=== PATIENT | male | born 1965 | race Caucasian/White ===

== ENCOUNTER 2018-03-02 23:02 | Emergency (ER) | payer OTHER ==
[~2018-03-02] VITALS: Ht 188 cm; Wt 100.7 kg
[~2018-03-02 23:02] MED LIST: OXYC10TA6 PO; OXYM20TA13 PO
[2018-03-02 23:03] VITALS: BP 150/95
[2018-03-02] MEDS ORDERED: BUPIVACAINE 0.25% ONE (23:36)
[2018-03-03] MEDS ORDERED: BUPIVACAINE/PF-EPI 0.25% 1:200K SQ ONE
== END 2018-03-03 00:34 | disposition home or self-care (01) ==
LOC: ED 23:59
DX: M54.16 Radiculopathy, lumbar region (principal); M43.17 Spondylolisthesis, lumbosacral region; M54.42 Lumbago with sciatica, left side
CPT/HCPCS: 72110; 99283; J7512

== ENCOUNTER → 2019-01-28 | Outpatient (CLI) | payer OTHER ==
[2019-01-28 09:26] LABS: BASOPHILS # (AUTO) 0.03 x10^3/uL (0-0.1); BASOPHILS % (AUTO) 0 % (0-1); EOSINOPHILS # (AUTO) 0.16 x10^3/uL (0-0.4); EOSINOPHILS % (AUTO) 2 % (1-7); LYMPHOCYTES # (AUTO) 1.91 x10^3/uL (1-3.4); LYMPHOCYTES % (AUTO) 27 % (22-44); MD NO; MEAN CORPUSCULAR HEMOGLOBIN 31.9 pg (27.5-34.5); MEAN CORPUSCULAR HGB CONC 33.5 g/dL (33.2-36.2); MEAN CORPUSCULAR VOLUME 95.1 fL (81-97); MEAN PLATELET VOLUME 8.1 fL (7.4-10.4); MONOCYTES # (AUTO) 0.55 x10^3/uL (0.2-0.8); MONOCYTES % (AUTO) 8 % (2-9); NEUTROPHILS # (AUTO) 4.42 x10^3/uL (1.8-6.8); NEUTROPHILS % (AUTO) 63 % (42-75); PLATELET COUNT 304 x10^3/uL (130-400); RED BLOOD COUNT 4.35 x10^6/uL (4.38-5.82)
[2019-01-28 09:34] LABS: INTERNATIONAL NORMALIZED RATIO 0.97 (0.93-1.1); PROTHROMBIN TIME 10.2 Seconds (9.6-11.5)
[2019-01-28 09:35] LABS: ANION GAP 4 mmol/L (5-15); CALCIUM 9.1 mg/dL (8.5-10.1); CHLORIDE 104 mmol/L (98-107); CREATININE 0.83 mg/dL (0.7-1.3)
== END | disposition home or self-care (01) ==
LOC: RAD 09:09
PROVIDERS: ATTEND Neurological Surgery
DX: Z01.812 Encounter for preprocedural laboratory examination (principal); R07.9 Chest pain, unspecified; M50.00 Cervical disc disorder with myelopathy, unspecified cervical region; M48.02 Spinal stenosis, cervical region
CPT/HCPCS: 36415; 71046; 80048; 85025; 85610; 85730; 93005

== ENCOUNTER 2019-03-18 06:15 | Emergency (ER) | payer OTHER ==
[~2019-03-18] VITALS: Ht 182.9 cm; Wt 97.2 kg
[2019-03-18] MEDS ORDERED: ALBUTEROL/IPRATROPIUM 2.5MG/0.5MG, 3 ML NPPB ONE (06:30)
--- NOTE | 2019-03-18 06:45 | NUR ---
PT HERE FOR INCREASED SOBX SEVERAL DAYS. PT 92 ON RA. PT PLACED ON 2 L O2 AND SATS IMPROVED TO 97. PT MEDICATED. RT CALLED. PT DENIES HX OF ASTHMA. CALL LIGHT IN REACH
[2019-03-18] MEDS ORDERED: ALBUTEROL/IPRATROPIUM 2.5MG/0.5MG, 3 ML ONE (06:53)
[2019-03-18 07:51] VITALS: BP 120/79
--- NOTE | 2019-03-18 07:51 | NUR ---
Plan of care updated with patient, patient to be discharged. Dressing independently.
== END 2019-03-18 08:05 | disposition home or self-care (01) ==
LOC: ED 08:02
DX: J45.909 Unspecified asthma, uncomplicated (principal)
CPT/HCPCS: 93005; 94640; 99283; J7512

== ENCOUNTER 2019-04-13 14:18 | Outpatient (CLI) | payer OTHER | END 2019-04-13 23:59 | disposition home or self-care (01) | LOC: STAR 14:18 | PROVIDERS: ATTEND Neurological Surgery | DX: Z01.818 Encounter for other preprocedural examination (principal); M48.02 Spinal stenosis, cervical region | CPT/HCPCS: 36415; 80053; 85025; 85610; 85730; 93005 ==

== ENCOUNTER 2019-04-21 07:11 | Inpatient (IN) | payer OTHER ==
[~2019-04-21] VITALS: Ht 185.4 cm; Wt 91.4 kg
[~2019-04-21 07:11] MED LIST changes: +BACITRACIN 50,000 UNIT ONE; +BUPIVACAINE/PF-EPI 0.5% 1:200K ONE; +THROMBIN 5,000 UNIT VIAL TP ONE
[2019-04-21] MEDS ORDERED: LACTATED RINGERS 1,000 ML IV SCH (07:51)
[2019-04-21] MEDS ORDERED: AMLO5TAB4 PO (07:55)
[2019-04-21 07:57] VITALS: BP 130/85
[2019-04-21] MEDS ORDERED: GABAPENTIN 300 MG CAPSULE PO ONE (08:00)
[2019-04-21] MEDS ORDERED: ACETAMINOPHEN 500 MG TABLET PO ONE (08:00)
[2019-04-21] MEDS ORDERED: MIDAZOLAM 1 MG/ML, 2ML ONE (08:18)
[2019-04-21] MEDS ORDERED: FENTANYL PF 250 MCG/5ML ONE ×5 (08:19→11:12)
[2019-04-21] MEDS ORDERED: NEOSTIGMINE 1 MG/ML, 10ML ONE (08:22)
[2019-04-21] MEDS ORDERED: DEXAMETHASONE 4 MG/ML, 1ML ONE (08:22)
[2019-04-21] MEDS ORDERED: PROPOFOL 10 MG/ML, 20ML ONE (08:22)
[2019-04-21] MEDS ORDERED: GLYCOPYRROLATE 0.2MG/1ML, 5ML ONE (08:22)
[2019-04-21] MEDS ORDERED: CEFAZOLIN 1,000 MG ONE ×3 (08:22→13:12)
[2019-04-21] MEDS ORDERED: ROCURONIUM 10MG/ML,5ML ONE (08:22)
[2019-04-21] MEDS ORDERED: PROPOFOL 50 ML ONE ×4 (09:38→13:14)
[2019-04-21] MEDS ORDERED: MEPERIDINE/PF 25MG/0.5ML IVPush PRN (10:30)
[2019-04-21] MEDS ORDERED: PROMETHAZINE 25 MG/ML, 1ML IM PRN ×3 (10:30→18:00)
[2019-04-21] MEDS ORDERED: LORazepam 2 MG/ML, 1ML IVPush PRN (10:30)
[2019-04-21] MEDS ORDERED: PROMETHAZINE 12.5 MG SUPP PR PRN (10:30)
[2019-04-21] MEDS ORDERED: hydrALAzine 20 MG/ML, 1ML IV PRN (10:30)
[2019-04-21] MEDS ORDERED: PROMETHAZINE 25 MG SUPP PR PRN (10:30)
[2019-04-21] MEDS ORDERED: OXYcodone 5 MG/5 ML ORAL.SOL UDC PO PRN (10:30)
[2019-04-21] MEDS ORDERED: MORPHINE SULFATE 4 MG/ML, 1ML IVPush PRN (10:30)
[2019-04-21] MEDS ORDERED: ONDANSETRON 2MG/ML, 2ML IV PRN ×2 (10:30→18:00)
[2019-04-21] MEDS ORDERED: FENTANYL PF 100 MCG/2ML IV PRN (10:30)
[2019-04-21] MEDS ORDERED: LABETALOL 5MG/ML, 20ML IV PRN (10:30)
[2019-04-21] MEDS ORDERED: PROMETHAZINE 25 MG/ML, 1ML IV PRN (10:30)
[2019-04-21] MEDS ORDERED: ONDANSETRON ODT 8 MG PO PRN (10:30)
[2019-04-21] MEDS ORDERED: PHENYLEPHRINE 10 MG/ML ONE (10:35)
[2019-04-21] MEDS ORDERED: SUCCINYLCHOLINE 20 MG/ML, 10ML ONE (11:17)
[2019-04-21] MEDS ORDERED: FENTANYL PF 100 MCG/2ML ONE ×7 (12:07→14:06)
[2019-04-21] MEDS ORDERED: LORazepam 2 MG/ML, 1ML ONE (14:35)
[2019-04-21] MEDS ORDERED: HYDROmorphone 2 MG/ML, 1ML ONE (14:35)
[2019-04-21] MEDS: HYDROmorphone 2 MG/ML, 1ML IVPush PRN ×3 (14:59→16:00)
[2019-04-21] MEDS ORDERED: OXYcodone ORAL.CONC 20 MG/ML PO PRN (15:00)
[2019-04-21] MEDS ORDERED: OXYcodone 5 MG/5 ML ORAL.SOL UDC ONE (15:39)
[2019-04-21] MEDS ORDERED: METHOCARBAMOL 1000MG/10 ML IVPB STA (16:01)
[2019-04-21] MEDS ORDERED: METHOCARBAMOL 1,000 MG in DEXTROSE 5% 100 ML IV ONE ×2 (16:30→18:00)
[2019-04-21 17:28] VITALS: BP 144/91
[2019-04-21] MEDS ORDERED: METHOCARBAMOL 750 MG TABLET PO PRN (18:00)
[2019-04-21] MEDS ORDERED: BISACODYL 10 MG SUPP PR PRN (18:00)
[2019-04-21] MEDS ORDERED: DIAZEPAM 5 MG/ML, 2ML IV PRN (18:00)
[2019-04-21] MEDS ORDERED: HYDROcodone/APAP 5/325 TABLET PO PRN (18:00)
[2019-04-21] MEDS ORDERED: DIPHENHYDRAMINE 50 MG/ML, 1ML IVPush PRN (18:00)
[2019-04-21] MEDS ORDERED: MAGNESIUM HYDROXIDE 8%, 30ML UDC PO PRN (18:00)
[2019-04-21] MEDS ORDERED: OXYcodone IR 5MG TABLET PO PRN (18:00)
[2019-04-21] MEDS: DIAZEPAM 5 MG TABLET PO PRN (19:58)
[2019-04-21] MEDS: CEFAZOLIN PMX 1GM/50ML 50 ML IVPB SCH (20:00)
[2019-04-21] MEDS: NS + 20MEQ KCL 1,000 ML IV SCH (20:00)
[2019-04-21 20:22] VITALS: BP 140/88
[2019-04-22] VITALS (7 sets, daily range): BP systolic 148–184; BP diastolic 93–104
[2019-04-22] MEDS: METHOCARBAMOL 750 MG in DEXTROSE 5% 100 ML IV SCH ×3 (01:00→17:35)
[2019-04-22] MEDS: DIAZEPAM 5 MG TABLET PO PRN ×4 (02:06→21:48)
[2019-04-22] MEDS: CEFAZOLIN PMX 1GM/50ML 50 ML IVPB SCH (03:40)
[2019-04-22] MEDS: OXYcodone IR 5MG TABLET PO PRN ×4 (06:09→21:53)
[2019-04-22 06:10] LABS: BASOPHILS # (AUTO) 0.03 x10^3/uL (0-0.1); BASOPHILS % (AUTO) 0 % (0-1); EOSINOPHILS # (AUTO) 0.02 x10^3/uL (0-0.4); EOSINOPHILS % (AUTO) 0 % (1-7); LYMPHOCYTES # (AUTO) 1.31 x10^3/uL (1-3.4); LYMPHOCYTES % (AUTO) 10 % (22-44); MD NO; MEAN CORPUSCULAR HEMOGLOBIN 31.7 pg (27.5-34.5); MEAN CORPUSCULAR HGB CONC 32.5 g/dL (33.2-36.2); MEAN CORPUSCULAR VOLUME 97.5 fL (81-97); MEAN PLATELET VOLUME 9.6 fL (7.4-10.4); MONOCYTES # (AUTO) 0.75 x10^3/uL (0.2-0.8); MONOCYTES % (AUTO) 6 % (2-9); NEUTROPHILS # (AUTO) 11.55 x10^3/uL (1.8-6.8); NEUTROPHILS % (AUTO) 85 % (42-75); PLATELET COUNT 275 x10^3/uL (130-400); RED BLOOD COUNT 4.41 x10^6/uL (4.38-5.82); RED CELL DISTRIBUTION WIDTH 13.8 % (9.4-14.8)
[2019-04-22 06:15] LABS: ANION GAP 6 mmol/L (5-15); CALCIUM 8.7 mg/dL (8.5-10.1); CHLORIDE 108 mmol/L (98-107); CREATININE 0.87 mg/dL (0.7-1.3)
[2019-04-22] MEDS: SENNA/DOCUSATE TABLET PO SCH (08:01)
[2019-04-22] MEDS: AMLODIPINE 5 MG TABLET PO SCH (08:01)
[2019-04-22] MEDS: NS + 20MEQ KCL 1,000 ML IV SCH ×2 (10:20→23:40)
[2019-04-22] MEDS ORDERED: OXYcodone IR 5MG TABLET ONE ×2 (10:31→17:28)
[2019-04-22] MEDS: HYDROmorphone 2 MG/ML, 1ML IM PRN ×3 (12:54→23:43)
[2019-04-22] MEDS ORDERED: OXYcodone 5 MG/5 ML ORAL.SOL UDC ONE (21:44)
[2019-04-23 01:45] VITALS: BP 161/115
[2019-04-23] MEDS: METHOCARBAMOL 750 MG in DEXTROSE 5% 100 ML IV SCH ×3 (01:53→18:31)
[2019-04-23] MEDS: OXYcodone IR 5MG TABLET PO PRN ×4 (01:53→19:48)
[2019-04-23] MEDS: LABETALOL 5MG/ML, 20ML IV PRN ×3 (03:43→14:08)
[2019-04-23] MEDS: HYDROmorphone 2 MG/ML, 1ML IM PRN ×3 (03:48→15:10)
[2019-04-23 03:54] VITALS: BP 159/104
[2019-04-23 04:00] VITALS: BP 151/97
[2019-04-23] MEDS: DIAZEPAM 5 MG TABLET PO PRN ×2 (04:18→12:56)
[2019-04-23 07:53] VITALS: BP 162/107
[2019-04-23] MEDS: AMLODIPINE 5 MG TABLET PO SCH (09:16)
[2019-04-23] MEDS: PREGABALIN 25 MG CAPSULE PO SCH ×2 (09:16→21:35)
[2019-04-23] MEDS: SENNA/DOCUSATE TABLET PO SCH (09:16)
[2019-04-23] MEDS: NS + 20MEQ KCL 1,000 ML IV SCH (09:51)
[2019-04-23 14:02] VITALS: BP 166/106
[2019-04-23 19:32] VITALS: BP 156/103
[2019-04-23] MEDS ORDERED: AMITRIPTYLINE 25 MG TABLET PO SCH (21:00)
[2019-04-24] MEDS: OXYcodone IR 5MG TABLET PO PRN ×3 (00:42→10:09)
[2019-04-24 00:45] VITALS: BP 181/116
[2019-04-24] MEDS: LABETALOL 5MG/ML, 20ML IV PRN ×2 (01:01→07:03)
[2019-04-24] MEDS: NS + 20MEQ KCL 1,000 ML IV SCH (02:10)
[2019-04-24] MEDS: METHOCARBAMOL 750 MG TABLET PO SCH ×2 (02:11→10:36)
[2019-04-24] MEDS: HYDROmorphone 2 MG/ML, 1ML IM PRN (05:56)
[2019-04-24 07:00] VITALS: BP 168/110
[2019-04-24] MEDS: SENNA/DOCUSATE TABLET PO SCH (08:29)
[2019-04-24] MEDS: PREGABALIN 25 MG CAPSULE PO SCH (08:29)
[2019-04-24] MEDS: AMLODIPINE 5 MG TABLET PO SCH (08:30)
[2019-04-24] MEDS ORDERED: MORP30TA81 PO (09:56)
[2019-04-24] MEDS ORDERED: OXYC5TAB2 PO (09:56)
[2019-04-24] MEDS ORDERED: AMIT25TA PO (09:56)
[2019-04-24] MEDS ORDERED: PREG25CA PO (09:56)
[2019-04-24] MEDS ORDERED: METH750T87 PO (09:56)
[2019-04-24] MEDS ORDERED: DIAZ5TAB PO ×2 (09:56→10:25)
[2019-04-24 11:14] VITALS: BP_SYST 150; BP_SYST 156; BP_DIAS 108; BP_DIAS 122
== END 2019-04-24 11:52 | disposition home or self-care (01) | DRG 473 ==
LOC: ORIP 07:11 → 4NOR 17:13 → DCLOUNGE 04-24 11:15
PROVIDERS: ADMIT Neurological Surgery; ATTEND Neurological Surgery
PROC: 0RT30ZZ Resection of Cervical Vertebral Disc, Open Approach (ICD-10-PCS; 2019-04-21)
PROC: 01N10ZZ Release Cervical Nerve, Open Approach (ICD-10-PCS; 2019-04-21)
PROC: 0RP10AZ Removal of Interbody Fusion Device from Cervical Vertebral Joint, Open Approach (ICD-10-PCS; 2019-04-21)
PROC: 4A11X4G Monitoring of Peripheral Nervous Electrical Activity, Intraoperative, External Approach (ICD-10-PCS; 2019-04-21)
PROC: 0RG20A0 Fusion of 2 or more Cervical Vertebral Joints with Interbody Fusion Device, Anterior Approach, Anterior Column, Open Approach (ICD-10-PCS; principal; 2019-04-21 10:00)
DX: M47.22 Other spondylosis with radiculopathy, cervical region (principal); M48.02 Spinal stenosis, cervical region; F17.200 Nicotine dependence, unspecified, uncomplicated; G89.29 Other chronic pain; F41.9 Anxiety disorder, unspecified; I10 Essential (primary) hypertension; Z88.5 Allergy status to narcotic agent
CPT/HCPCS: 36415; 72040; 80048; 85025; 95938; 95941; C1713; C1776; G0378; J0690; J1100; J1170; J2250; J2270; J2704; J2710; J3010; J3480; C1762; J0330; J2370; J2800; J7120

== ENCOUNTER 2019-05-07 11:21 | Emergency (ER) | payer OTHER ==
[~2019-05-07] VITALS: Ht 188 cm; Wt 90.0 kg
[~2019-05-07 11:21] MED LIST changes: +AMIT25TA PO; +AMLO5TAB4 PO; -BACITRACIN 50,000 UNIT ONE; -BUPIVACAINE/PF-EPI 0.5% 1:200K ONE; +DIAZ5TAB PO; +METH750T87 PO; +MORP30TA81 PO; +OXYC5TAB2 PO; +PREG25CA PO; -THROMBIN 5,000 UNIT VIAL TP ONE
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
[2019-05-07] MEDS ORDERED: HYDROmorphone 1 MG/ML, 1ML INJ IVPush PRN (12:00)
[2019-05-07] MEDS ORDERED: SODIUM CHLORIDE FLUSH 10ML SYR IVF ONE (12:00)
[2019-05-07] MEDS ORDERED: ONDANSETRON 2MG/ML, 2ML IVPush ONE (12:00)
--- NOTE | 2019-05-07 12:09 | NUR ---
TO XR PER GELY
[2019-05-07] MEDS ORDERED: ONDANSETRON 2MG/ML, 2ML ONE (12:16)
[2019-05-07] MEDS ORDERED: HYDROmorphone 1 MG/ML, 1ML VIAL ONE ×2 (12:16→16:45)
[2019-05-07] MEDS ORDERED: LORazepam 1MG TABLET PO ONE (12:30)
--- NOTE | 2019-05-07 12:47 | NUR ---
ZOFRAN & DILAUDID GIVEN PER EMAR. PT IN WALLACE'S POSITION W/ NECK ROLL BEHIND NECK. PT UNWILLING TO HAVE C-COLLAR APPLIED, AT THIS TIME. PT AWAITING CT. SIDE RAILS UP X2, CALL LIGHT W/IN REACH.
[2019-05-07] MEDS ORDERED: DIAZEPAM 5 MG/ML, 2ML ONE (13:25)
[2019-05-07] MEDS ORDERED: DIAZEPAM 5 MG/ML, 2ML IV ONE (13:30)
--- NOTE | 2019-05-07 13:38 | NUR ---
VALIUM GIVEN PER EMAR. PT TO MRI PER GELY
--- NOTE | 2019-05-07 14:40 | NUR ---
PT SUPINE ON BED. RATES NECK PAIN AT 8/10. RESP EVEN & UNLABORED.
[2019-05-07] MEDS ORDERED: HYDROmorphone 1 MG/ML, 1ML INJ IV ONE (15:30)
[2019-05-07] MEDS ORDERED: METHOCARBAMOL 1,000 MG in DEXTROSE 5% 100 ML IV ONE (15:30)
[2019-05-07] MEDS ORDERED: METHOCARBAMOL 500 MG TABLET ONE (17:42)
--- NOTE | 2019-05-07 17:44 | NUR ---
PT REPORT TO LYNETTE DELACRUZ RN.
--- NOTE | 2019-05-07 17:53 | NUR ---
BREAK RN: PT MEDICATED ORDERED. IV DC'D WITH CANNULA INTACT. REVIEWED DC INSTRUCTIONS WITH PT, UNDERSTANDING VERBALIZED. PT LEFT AMB, GAIT STEADY.
[2019-05-07 17:54] VITALS: BP 158/105
[2019-05-07] MEDS ORDERED: METHOCARBAMOL 500 MG TABLET PO ONE (18:00)
== END 2019-05-07 17:57 | disposition home or self-care (01) ==
LOC: ED 12:26
DX: S16.1XXA Strain of muscle, fascia and tendon at neck level, initial encounter (principal); M62.81 Muscle weakness (generalized); J45.909 Unspecified asthma, uncomplicated; M54.16 Radiculopathy, lumbar region; Z72.9 Problem related to lifestyle, unspecified; Z87.891 Personal history of nicotine dependence; W19.XXXA Unspecified fall, initial encounter; Y93.89 Activity, other specified; Y92.89 Other specified places as the place of occurrence of the external cause; Y99.8 Other external cause status
CPT/HCPCS: 70450; 72050; 72141; 93005; 96374; 96375; 96376; 99284; J1170; J2405; J3360